=== PATIENT | female | born 1990 | race Caucasian/White ===

== ENCOUNTER 2023-12-22 10:28 | Outpatient (AMB) | payer OTHER, SELFPAY ==
--- NOTE | 2023-12-22 10:29 | A.OFFPC_ITS ---
Vital Signs 12/22/23 10:31 Height 5 ft 4 in Weight 112 lb 6 oz BMI 19.3 BP 110/64 Blood Pressure Location Rt brachial Position Sitting Respiration 13 Pulse 74 Pulse Source Pulse Oximeter Temp 97 F Temp Source Temporal Artery Scan Pulse Oximetry (%) 99 Oxygen Delivery Method Room Air Intake Visit Reasons: PE Woods Overseer Required: No Accompanied by: Self / Same As Patient Allergies No Known Allergies Allergy (Verified 12/22/23 10:43) Medication List - Last Reconciled 12/22/23 by Jared Murphy CNP levonorgestrel (Mirena) intrauterine Tobacco use date assessed: 12/22/23 Dental Screening Dental Screen Date: 12/22/23 Did you have a dental visit in the last 12 months?: Yes Did you have a dental problem in the last 6 months where you did not have access to dental care?: No Was dental information given to patient?: Patient has dentist HPI HPI Comments History of Present Illness Details 33-year-old female presents for an exten ded physical exam She has PMH significant for cleft lip and anemia She notes that she was on iron medications which she stopped taking due to constipation She is on OCP She offers no complaints and denies acute symptoms at this time She states that she is followed by [facility]. Her last pap smear was 09/2023: normal She did not get blood work done last year She notes that she is up-to-date on the flu vaccine [facility] Medical History (Updated 11/28/22 @ 10:13 by Jared Murphy CNP) Cleft palate and cleft lip Anemia Cleft palate Surgical History (Updated 12/22/23 @ 10:38 by URIAH May) H/O tooth extraction Family History (Updated 12/22/23 @ 10:39 by URIAH May) Mother Hypertension Hyperlipemia Diabetes No family history of mental disorder Father Hyperlipemia Hypertension No family history of mental disorder Social History Housing: House Patient Tobacco Use Status: Never used Tobacco e-Cigarette/Vaping Use: Never Used service: No Current occupational status: employed 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 1. Little interest or pleasure in doing things: several days 2. Feeling down, depressed, or hopeless: not at all 3. Trouble falling or staying asleep, or sleeping too much: several days 4. Feeling tired or having little energy: several days 5. Poor appetite or overeating: not at all 6. Feeling bad about yourself - or that you are a failure or have let yourself or your family down: not at all 7. Trouble concentrating on things, such as reading the newspaper or watching television: not at all 8. Moving or speaking so slowly that other people could have noticed. Or the opposite - being so fidgety or restless that you have been moving around a lot more than usual: not at all 9. Thoughts that you would be better off or of hurting yourself in some way: not at all Total score: 3 Depression Screening Interpretation: Negative Depression Screening Done: Yes [id number] - PHQ-9 Billing: Yes Source: Developed by Drs. Frank uTbbs, Erica Alves, Ritesh Goncalves and colleagues, with an educational amy from [employer]. Thrive Questionnaire Date Thrive assessed: 12/22/23 I am a: Patient What is your living situation today?: I have a steady place to live Within the past 12 months, did the food you bought not last and you didn't have the money to get more?: Never true Within the past 12 months, did you worry whether your food would run out before you got money to buy more?: Never true Do you have trouble paying for medicines?: No Do you have trouble getting transportation to medical appointments?: No Do you have trouble paying your heating and electricity bill?: No Do you have trouble taking care of your child, family member or friend?: No Do you have trouble with day-to-day activities such as bathing, preparing meals, shopping, managing finances, etc.?: No Are you currently unemployed and looking for a job?: No Are you interested in more education?: No Please select the resources that you would like help with: None Currently or been in a relationship where the following occur: no concerns reported THRIVE Score: 0 AUDIT C Alcohol Use Questionnaire (AUDIT-C) 1. How often do you have a drink containing alcohol?: Never 3. How often do you have six or more drinks on one occasion?: Never Total Score: 0 BHARGAV-7 AMB Questionnaire BHARGAV-7 Date BHARGAV - 7 assessed: 12/22/23 Feeling nervous, anxious, or on edge: 0 = Not at all Not being able to stop or control worryin = Not at all Worrying too much about different things: 0 = Not at all Trouble relaxin = Several days Being so restless that it is hard to sit still: 0 = Not at all Becoming easily annoyed or irritable: 0 = Not at all Feeling afraid as if something awful might happen: 3 = Nearly every day Total BHARGAV-7 score (0-4 normal; 5-9 mild; 10-14 moderate; 15-21 severe): 4 Source: Developed by Drs. Frank Tubbs, Erica Alves, Ritesh Goncalves and colleagues, with an educational amy from [employer]. BHARGAV-7 Assessment Billing BHARGAV-7 Assessment Tool: BHARGAV-7 Assessment 54513 Review of Systems Const Details: Denies chills, Denies fatigue, Denies fever(s), Denies headache(s) and Denies weakness HEENT Denies change in vision, Denies dizziness, Denies headache(s), Denies hearing loss, Denies nasal congestion, Denies sinus pain, Denies sinus pressure and Denies sore throat Card Denies chest pain, Denies lightheadedness, Denies dyspnea and Denies other (palpitations) Resp Denies cough, Denies dyspnea and Denies wheezing GI Denies abdominal pain, Denies melena, Denies hematochezia, Denies change in bowel habits, Denies dyspepsia and Denies nausea Denies hematuria and Denies dysuria Musc Denies abnormal gait, Denies myalgias, Denies arthralgias, Denies numbness and Denies tingling Skin/Breast Denies rash, Denies unusual bruising and Denies wounds Neuro Denies abnormal gait, Denies dizziness, Denies headache(s), Denies memory loss, Denies numbness, Denies Sensory deficit (Neuro), Denies tingling and Denies weakness Psych Denies anxiety, Denies depression and Denies memory loss Endo Denies cold intolerance, Denies fatigue, Denies heat intolerance, Denies polydipsia and Denies polyuria Issac/Lymph Denies easy bleeding and Denies easy bruising Aller/Immun Denies wheezing Physical exam (Primary Care) Tobacco/Smoking Status: Tobacco use Status Tobacco use date assessed 11/28/22 12/22/23 10:29 Patient Tobacco Use Status Never used Tobacco 12/22/23 10:29 e-Cigarette/Vaping Use Never Used 12/22/23 10:29 Depression Screening Interpretation: Negative Thrive Assessment: Date of Thrive Assessment Date Thrive assessed 11/28/22 12/22/23 10:29 Currently or been in a relationship where the following occur: no concerns reported Const Other: General: no acute distress, well developed, alert and awake Nutritional Appearance: well nourished Orientation/consciousness: patient oriented x3 HENMT Head: Yes normocephalic and Yes atraumatic Ears: hearing grossly normal bilaterally and TM's normal bilaterally General nose exam: Normal external nose present and Normal nares present Mouth: Normal oral and palatal mucosa present and moist mucous membranes Teeth and gingiva: dentition normal Throat: Yes oropharynx normal Eyes Pupils: Equal, round and reactive pupils present and Pupil accommodation reflex normal EOM: EOMs intact bilaterally Neck Neck: Yes normal visual inspection, Yes no lymphadenopathy and Yes trachea midline Thyroid: Thyroid normal Carotids: no bruits Lymphatic: no lymphadenopathy noted Chest Chest palpation & inspection: normal inspection of the chest Resp Effort & Inspection: normal respiratory effort Auscultation: clear to auscultation bilaterally Cardio Rate: regular rate Rhythm: regular rhythm Heart sounds: S1 normal heart sound present, S2 normal heart sound present, no gallops, no murmurs and no rubs Bruits: no abdominal aortic bruits and no carotid bruits GI Palpation (GI): No Abdominal aortic bruit present, Soft to palpation, nontender, No hepatosplenomegaly present and No Rebound tenderness present Auscultation: normal bowel sounds General: Yes no CVA tenderness Back/Spine/Pelvis Back: no CVA tenderness Cervical Spine: cervical ROM normal and No Cervical spine tenderness Thoracic/Lumbar Spine: thoraco-lumbar ROM normal, No pain with thoraco-lumbar ROM, No thoracic spinal tenderness and No lumbar spinal tenderness Skin General: warm and dry. Normal skin color. Normal skin turgor Lesions: no lesions Rashes: no rashes Trauma: no lacerations or abrasions Wounds: no wounds Nails: normal Neuro General: patient oriented x3, gait normal and CN's II-XI intact bilaterally Cranial nerves: Yes Equal, round and reactive pupils present Cognition (Neuro): normal cognition Gait exam (Neuro): Normal gait present Motor exam (neuro): 5/5 motor strength present throughout Sensory Exam: No Sensory deficit (Neuro) Deep tendon reflexes (DTR's): Right patellar reflex intensity grade: 2+ and Left patellar reflex intensity grade: 2+ Extrem General: Yes normal to inspection, No edema and No calf tenderness Psych Appearance: grossly normal Affect: normal affect Attitude: cooperative Thought process: Normal thought process present Assessment and Plan Assessment & Plan (1) Physical exam, annual: Code(s): Z00. - Encounter for general adult medical examination without abnormal findings Plan: No significant physical restrictions or limitations noted Healthy diet and routine exercise encouraged Encouraged to get fasting labs done in follow-up for telehealth visit for labs review Return with symptoms or concerns Verbalized understanding and agreed with the treatment plan (2) Laboratory tests ordered as part of a complete physical exam (CPE): Code(s): Z. - Encounter for general adult medical examination without abnormal findings Plan: Fasting labs ordered as part of a complete physical exam. Advised to fast for at least 10 hours before getting labs drawn. May drink water Verbalized understanding and agreed with treatment plan. Orders: Orders Comprehensive [place]. Panel Fast Today Z00.00 - Encounter for general adult medical examination without abnormal findings Lipid Panel Today Z00.00 - Encounter for general adult medical examination without abnormal findings TSH reflex Free T4 Today Z00.00 - Encounter for general adult medical ex amination without abnormal findings UA CC w/rflx Micro + Cult Today Z00.00 - Encounter for general adult medical examination without abnormal findings Complete Blood Count Auto Diff Today Z00.00 - Encounter for general adult medical examination without abnormal findings Coding Level of Care Code Est Pt Prev Care 18-39y(38427) Diagnoses Physical exam, annual Z00. Laboratory tests ordered as part of a complete physical exam (CPE) Z00. Additional Codes BHARGAV-7 Assessment Billing - BHARGAV-7 Assessment Tool: BHARGAV-7 Assessment [id number] ([id number])
[2023-12-22 10:31] VITALS: BP 110/64; PULSE 74; RESP 13; TEMP 36.1; O2SAT 99; BMI 19.3
== END 2023-12-22 10:55 | disposition home or self-care (01) ==
PROVIDERS: PCP Nurse Practitioner Family; Visit Provider Nurse Practitioner Family
DX: Z00.00 Encounter for general adult medical examination without abnormal findings (principal)
CPT/HCPCS: 99395

== ENCOUNTER 2023-12-28 07:12 | Outpatient (REF) | payer OTHER, SELFPAY ==
[2023-12-28 11:13] LABS: MANUAL DIFF FLAG NO
[2023-12-28 11:26] LABS: Basophils Absolute Auto 0.1 X10*3/uL (0.0-0.2); Basophils Percent Auto 0.9 % (0-2); Eosinophils Absolute Auto 0.2 X10*3/uL (0.0-0.4); Eosinophils Percent Auto 2.4 % (0-4); Hemoglobin 13.5 g/dl (12.0-16.0); Imm Gran Abs Auto 0.02 X10*3/uL (0.00-0.03); Imm Gran Pct Auto 0.3 % (0.0-0.4); Lymphocytes Absolute Auto 2.1 X10*3/uL (1.2-4.9); Mean Corpuscular HGB Conc 32.9 g/dl (31.0-35.0); Mean Corpuscular Hemoglobin 29.8 pg (27.0-33.0); Mean Corpuscular Volume 90.5 fL (80.0-98.0); Mean Platelet Volume 10.8 fL (9.4-12.3); Monocytes Absolute Auto 0.5 X10*3/uL (0.1-1.2); Monocytes Percent Auto 6.9 % (2-11); Neutrophils Absolute Auto 4.6 x10*3/uL (2.0-8.3); Neutrophils Percent Auto 61.5 % (45-73); Platelet Count 239 X10*3/uL (160-400); Red Blood Count 4.53 X10*6/uL (4.20-5.50); White Blood Count 7.4 X10*3/uL (4.8-10.8)
[2023-12-28 11:32] LABS: Appearance Urine Turbid; Color Urine Dark Yellow; Glucose Urine UA Negative (Negative); Leukocyte Esterase Urine Small (1+) (Negative); Nitrite Urine Negative (Negative); Specific Gravity - Urine >= 1.030 (1.005-1.025); UMIC TRIGGER UACC YES; Urine Blood Negative (Negative); Urine Ketones Trace mg/dL (Negative); Urine Protein Negative (Neg-Trace)
[2023-12-28 11:46] LABS: Alanine Aminotransferase 13 U/L (0-31); Albumin Level 4.4 g/dL (3.5-5.0); Alkaline Phosphatase 54 U/L (39-117); Anion Gap 12 (12-20); Aspartate Amino Transferase 18 U/L (5-31); Bilirubin Total 1.6 mg/dL (0.0-1.0); Blood Urea Nitrogen 11 mg/dL (9-16); Calcium 9.6 mg/dL (8.4-10.2); Carbon Dioxide 23 mmol/L (22-29); Chloride 107 mmol/L (96-108); Cholesterol 155 mg/dL (<200); Estimated Glomerular Filt Rate > 60; Glucose Fasting 91 mg/dL (60-99); HDL Cholesterol 58 mg/dL (>40); LDL Cholesterol Calculated 84 mg/dL (<100); Potassium 3.7 mmol/L (3.3-5.1); Sodium 138 mmol/L (135-145); Total Protein 7.9 g/dL (6.5-8.0); Triglycerides 68 mg/dL (<150)
[2023-12-28 11:46] LABS: Bacteria Urine 1+ (None Seen); Hyaline Casts Urine 0-2 /LPF (0-2); RBC Urine 0-2 /HPF (0-2); UACC Culture Trigger YES
[2023-12-28 12:05] LABS: TSH reflex Free T4 1.09 uIU/mL (0.32-4.0)
== END 2023-12-28 07:13 | disposition home or self-care (01) ==
LOC: HO.WFDLDS 07:12
PROVIDERS: Visit Provider Nurse Practitioner Family
DX: Z00.00 Encounter for general adult medical examination without abnormal findings (principal); Z13.6 Encounter for screening for cardiovascular disorders; R82.90 Unspecified abnormal findings in urine
CPT/HCPCS: 36415; 80053; 80061; 81001; 84443; 85025; 87086

== ENCOUNTER 2024-01-11 15:26 | Outpatient (AMB) | payer OTHER, SELFPAY ==
--- NOTE | 2024-01-11 15:24 | MHC.PC.OV ---
Intake Visit Reasons: Telehealth 2-3 wks labs review Honeycomb Blanket Maker Required: No Allergies No Known Allergies Allergy (Verified 01/11/24 15:25) Tobacco use date assessed: 12/22/23 Dental Screening Dental Screen Date: 12/22/23 HPI HPI Comments History of Present Illness Details Patient presents for telehealth visit for review of recent blood work No acute symptoms at this time [facility] Medical History (Updated 01/11/24 @ 15:42 by Jared Murphy CNP) Cleft palate and cleft lip Anemia Cleft palate Surgical History H/O tooth extraction Family History Mother Hypertension Hyperlipemia Diabetes No family history of mental disorder Father Hyperlipemia Hypertension No family history of mental disorder Social History Housing: House Patient Tobacco Use Status: Never used Tobacco e-Cigarette/Vaping Use: Never Used service: No Current occupational status: employed 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 Frank Tubbs, Erica Alves, Ritesh Goncalves and colleagues, with an educational amy from [employer]. Review of Systems Const Details: Const Denies chills, Denies fatigue, Denies fever(s), Denies headache(s) and Denies weakness ENT Denies dizziness and Denies headache(s) Card Denies chest pain, Denies lightheadedness, Denies dyspnea and Denies other (Palpitations) Resp Denies cough, Denies dyspnea, Denies wheezing and Denies other ( shortness of breath) GI Denies abdominal pain, Denies melena, Denies hematochezia, Denies change in bowel habits, Denies dyspepsia and Denies nausea Denies hematuria and Denies dysuria Musc Denies abnormal gait, Denies myalgias, Denies arthralgias, Denies numbness and Denies tingling Skin/Breast Denies rash, Denies unusual bruising and Denies wounds Neuro Denies abnormal gait, Denies dizziness, Denies headache(s), Denies memory loss, Denies numbness, Denies Sensory deficit (Neuro), Denies tingling and Denies weakness Psych Denies anxiety, Denies depression, Denies memory loss Endo Denies cold intolerance, Denies fatigue, Denies heat intolerance, Denies polydipsia and Denies polyuria Aller/Immun Denies wheezing Physical exam (Primary Care) Tobacco/Smoking Status: Tobacco use Status Tobacco use date assessed 12/22/23 01/11/24 15:26 Patient Tobacco Use Status Never used Tobacco 01/11/24 15:26 e-Cigarette/Vaping Use Never Used 01/11/24 15:26 Thrive Assessment: Date of Thrive Assessment Date Thrive assessed 12/22/23 01/11/24 15:26 Const Other: Telehealth visit. No physical exam Telehealth Telehealth Telehealth Platform: Telephone Location of provider rendering services: practice address Location of patient: other Patient Identification confirmed using: Name, : Yes Telehealth method: voice only Patient verbally consented to treatment: Yes Patient verbally consented to billing insurance company: Yes Patient informed of any privacy concerns related to visit: Yes Assessment and Plan Assessment & Plan (1) Elevated bilirubin: Code(s): R17 - Unspecified jaundice Plan: Recent labs reviewed with the patient Unremarkable findings except for slightly elevated bilirubin level, 1.6 CBC and liver enzymes are normal Gilbert syndrome is likely Will repeat bilirubin levels to monitor trend. Will make changes as needed Advised to schedule her next physical for a year from 12/22/2023 Return sooner with symptoms or concerns Verbalized understanding and agreed with the plan Orders: Orders Bilirubin Total Today R17 - Unspecified jaundice Coding Level of Care Code Tele Est Pt Level 2 (63445) Diagnoses Elevated bilirubin R17 Time Spent (min) 10
== END 2024-01-11 17:19 | disposition home or self-care (01) ==
LOC: HO.HMGFM 15:26
PROVIDERS: PCP Nurse Practitioner Family; Visit Provider Nurse Practitioner Family
DX: R17 Unspecified jaundice (principal)
CPT/HCPCS: 99441

== ENCOUNTER 2024-11-30 09:53 | Outpatient (AMB) | payer OTHER, SELFPAY ==
--- NOTE | 2024-11-30 09:57 | A.OFFPC_ITS ---
Vital Signs 11/30/24 10:02 Height 5 ft 4 in Weight 119 lb BMI 20.4 BP 108/62 Blood Pressure Location Rt brachial Position Sitting Respiration 16 Pulse 64 Pulse Source Pulse Oximeter Temp 98.0 F Temp Source Oral Pulse Oximetry (%) 98 Oxygen Delivery Method Room Air Intake Visit Reasons: Ears infections Intake Note: patient here c/o ear pain on right ear for a while now Pick Pulling Machine Tender Required: No Is last menstrual period known: No (she has an IUD) Post menopausal: No Patient : No Allergies No Known Allergies Allergy (Verified 11/30/24 10:15) Medication List - Last Reconciled 11/30/24 by Jared Murphy CNP levonorgestrel (Mirena) intrauterine Tobacco use date assessed: 11/30/24 Dental Screening Dental Screen Date: 11/30/24 Did you have a dental visit in the last 12 months?: Yes Did you have a dental problem in the last 6 months where you did not have access to dental care?: No Was dental information given to patient?: Patient has dentist HPI HPI Comments History of Present Illness Details 34-year-old female presents with complai nts intermittent of right ear pain which has been ongoing for the past 2 weeks. She notes pain with pressure on the right tragus. No loss of hearing. No headache or constitutional symptoms. [facility] Medical History (Updated 11/30/24 @ 10:35 by Jared Murphy CNP) Cleft palate and cleft lip Anemia Cleft palate Surgical History H/O tooth extraction Family History Mother Hypertension Hyperlipemia Diabetes No family history of mental disorder Father Hyperlipemia Hypertension No family history of mental disorder Social History Housing: House Patient Tobacco Use Status: Never used Tobacco e-Cigarette/Vaping Use: Never Used service: No Current occupational status: employed Current occupation: [employer] Cognitive needs: No Hearing needs: No Vision needs: No Questionnaire PHQ-9 Over the last 2 weeks, how often have you been bothered by any of the following problems? 1. Little interest or pleasure in doing things: not at all 2. Feeling down, depressed, or hopeless: not at all 3. Trouble falling or staying asleep, or sleeping too much: not at all 4. Feeling tired or having little energy: not at all 5. Poor appetite or overeating: not at all 6. Feeling bad about yourself - or that you are a failure or have let yourself or your family down: not at all 7. Trouble concentrating on things, such as reading the newspaper or watching television: not at all 8. Moving or speaking so slowly that other people could have noticed. Or the opposite - being so fidgety or restless that you have been moving around a lot more than usual: not at all 9. Thoughts that you would be better off or of hurting yourself in some way: not at all Total score: 0 Source: Developed by Drs. Frank Tubbs, Erica Alves, Ritesh Goncalves and colleagues, with an educational amy from [employer]. Thrive Questionnaire Date Thrive assessed: 11/30/24 I am a: Patient What is your living situation today?: I have a steady place to live Within the past 12 months, did the food you bought not last and you didn't have the money to get more?: Never true Within the past 12 months, did you worry whether your food would run out before you got money to buy more?: Never true Do you have trouble paying for medicines?: No Do you have trouble getting transportation to medical appointments?: No Do you have trouble paying your heating and electricity bill?: No Do you have trouble taking care of your child, family member or friend?: No Do you have trouble with day-to-day activities such as bathing, preparing meals, shopping, managing finances, etc.?: No Are you currently unemployed and looking for a job?: No Are you interested in more education?: No Please select the resources that you would like help with: None Currently or been in a relationship where the following occur: No concerns reported THRIVE Score: 0 AUDIT C Alcohol Use Questionnaire (AUDIT-C) 1. How often do you have a drink containing alcohol?: Never 2. How many drinks containing alcohol do you have on a typical day when you are drinking?: 1 or 2 3. How often do you have six or more drinks on one occasion?: Never Total Score: 0 BHARGAV-7 AMB Questionnaire BHARGAV-7 Date BHARGAV - 7 assessed: 12/22/23 Feeling nervous, anxious, or on edge: 0 = Not at all Not being able to stop or control worryin = Not at all Worrying too much about different things: 0 = Not at all Trouble relaxin = Not at all Being so restless that it is hard to sit still: 0 = Not at all Becoming easily annoyed or irritable: 0 = Not at all Feeling afraid as if something awful might happen: 0 = Not at all Total BHARGAV-7 score (0-4 normal; 5-9 mild; 10-14 moderate; 15-21 severe): 0 Source: Developed by Drs. Frank Tubbs, Erica Alves, Ritesh Goncalves and colleagues, with an educational amy from [employer]. Review of Systems Const Details: Const Denies chills, Denies fatigue, Denies fever(s), Denies headache(s) and Denies weakness ENT Reports as per HPI Card Denies chest pain, Denies lightheadedness, Denies dyspnea and Denies other (Palpitations) Resp Denies cough, Denies dyspnea, Denies wheezing and Denies other ( shortness of breath) GI Denies abdominal pain, Denies melena, Denies hematochezia, Denies change in bowel habits, Denies dyspepsia and Denies nausea Denies hematuria and Denies dysuria Musc Denies abnormal gait, Denies myalgias, Denies arthralgias, Denies numbness and Denies tingling Skin/Breast Denies rash, Denies unusual bruising and Denies wounds Neuro Denies abnormal gait, Denies dizziness, Denies headache(s), Denies memory loss, Denies numbness, Denies Sensory deficit (Neuro), Denies tingling and Denies weakness Psych Denies anxiety, Denies depression, Denies memory loss Endo Denies cold intolerance, Denies fatigue, Denies heat intolerance, Denies polydipsia and Denies polyuria Aller/Immun Denies wheezing Physical exam (Primary Care) Vital Signs: Last Vital Signs Temp 98.0 F 11/30/24 10:02 Pulse 64 11/30/24 10:02 Resp 16 11/30/24 10:02 BP 108/62 03/19/25 10:02 Pulse Ox 98 11/30/24 10:02 Oxygen Delivery Method Room Air 11/30/24 10:02 BMI result Body Mass Index 20.4 Tobacco/Smoking Status: Tobacco use Status Tobacco use date assessed 11/30/24 11/30/24 10:02 Patient Tobacco Use Status Never used Tobacco 11/30/24 10:02 e-Cigarette/Vaping Use Never Used 11/30/24 10:02 PHQ-9: PHQ-9 Score PHQ-9: Total score 0 11/30/24 10:02 Thrive Assessment: Date of Thrive Assessment Date Thrive assessed 11/30/24 11/30/24 10:02 Currently or been in a relationship where the following occur: No concerns reported Const Other: General: no acute distress and well developed Nutritional Appearance: well nourished Orientation/consciousness: patient oriented x3 HENMT Head is normocephalic Right ear with significant cerumen impaction occluding the ear canal and TM; tenderness with palpation of the right tragus. Normal left ear canal and TM Nasal turbinates and oropharynx are pink and moist Sinuses are nontender with palpation No auricular or cervical lymphadenopathy Eyes General: appearance normal, both eyes and all related structures Pupils: Equal, round and reactive pupils present EOM: EOMs intact bilaterally Resp Effort & Inspection: normal respiratory effort Auscultation: clear to auscultation bilaterally Cardio Rate: regular rate Rhythm: regular rhythm Heart sounds: S1 normal heart sound present, S2 normal heart sound present, no gallops, no murmurs and no rubs GI Palpation (GI): No Abdominal aortic bruit present, Soft to palpation, nontender, No hepatosplenomegaly present and No Rebound tenderness present Auscultation: normal bowel sounds General: Yes no CVA tenderness Back/Spine/Pelvis Back: no CVA tenderness Cervical Spine: cervical ROM normal and No Cervical spine tenderness Thoracic/Lumbar Spine: thoraco-lumbar ROM normal, No pain with thoraco-lumbar ROM, No thoracic spinal tenderness and No lumbar spinal tenderness Extrem General: Yes normal to inspection, No edema and No calf tenderness Skin General: warm and dry. Normal skin color. Normal skin turgor Lesions: no lesions Rashes: no rashes Trauma: no lacerations or abrasions Wounds: no wounds Nails: normal Neuro General: patient oriented x3, gait normal and no focal neuro deficit Cranial nerves: Yes Equal, round and reactive pupils present Cognition (Neuro): normal cognition Gait exam (Neuro): Normal gait present Sensory Exam: No Sensory deficit (Neuro) Psych Appearance: grossly normal Affect: normal affect Attitude: cooperative Thought process: Normal thought process present Coding Level of Care Code Est Pt Level 3 (00554) Diagnoses Impacted cerumen, right ear H61.21 Laboratory tests ordered as part of a complete physical exam (CPE) Z00.00 Assessment & Plan Assessment & Plan (1) Impacted cerumen, right ear: Code(s): H61.21 - Impacted cerumen, right ear Category: Medical Plan: Patient presents with intermittent right ear pain and pain with palpation of the right tragus for the past 2 weeks. Right ear with significant cerumen impaction occluding the ear canal and TM; tenderness with palpation of the right tragus. May take Tylenol or ibuprofen for pain or discomfort. Debrox ordered; advised to use as prescribed. Follow-up after the 4th day of using Debrox for right ear lavage. Verbalized understanding and agreed with the plan. (2) Laboratory tests ordered as part of a complete physical exam (CPE): Code(s): Z00.00 - Encounter for general adult medical examination without abnormal findings Category: Medical Plan: Fasting labs ordered as part of a complete physical exam. Advised to fast for at least 10 hours before getting labs drawn. May drink water Verbalized understanding and agreed with treatment plan. Orders: Orders Complete Blood Count Auto Diff Today Z00.00 - Encounter for general adult medical examination without abnormal findings Comprehensive [place]. Panel Fast Today Z00.00 - Encounter for general adult medical examination without abnormal findings Lipid Panel Today Z00.00 - Encounter for general adult medical examination without abnormal findings TSH reflex Free T4 Today Z00.00 - Encounter for general adult medical examination without abnormal findings UA CC w/rflx Micro + Cult Today Z00.00 - Encounter for general adult medical examination without abnormal findings Vitamin D 25-OH Total Today Z00.00 - Encounter for general adult medical examination without abnormal findings Medications: New carbamide peroxide 6.5% (Debrox) 5 drps otic (ear) right DAILY 4 days 15 mL 0RF
[2024-11-30 10:02] VITALS: BP 108/62; PULSE 64; RESP 16; TEMP 36.7; O2SAT 98; BMI 20.4
--- OUTSIDE RECORDS SUMMARY | 2024-11-30 11:17 | XMS_ITS | Clinical Summary ---
Author Organization [address] Address [address] [place] [address] Phone Care Team Providers Care Hotel Assistant Manager Name Role Phone Physician, Pcp Unknown Primary Care Provider Mary vailable Encounters Date Type Department Care Team Description 11/04/2024 Lab Requisition [facility] - Main Lab [address] [facility] [place] [address] Kwame Mercer MD Encounter for gynecological examination (general) (routine) without abnormal findings from Last 3 Months Social History Tobacco Use Types Packs/Day Years Used Date Smoking Tobacco: Never Assessed Comments Unknown Sex and Gender Information Value Date Recorded Sex Assigned at Not on file Legal Sex Female 9:07 AM EST Gender Identity Not on file Sexual Orientation Not on file Plan of Treatment Health Maintenance Due Date Last Done Comments Hepatitis B Vaccines (1 of 3 - 19+ 3-dose series) 2008 DTaP,Tdap,and Td Vaccines (2 - Td or Tdap) 04/04/2023 04/04/2013 COVID-19 Vaccine ( - 2023-2 5 season) 2024 Influenza Vaccine (#1) 2024 07/03/2016 Depression Screening 11/04/2024 HIV Screening 11/04/2024 Hepatitis C Screening 11/04/2024 Social Influencers of Health Screening 11/04/2024 Cervical Cancer Screening: P ap Smear 11/03/2027 11/03/2024 HIB Vaccines Aged Out No longer eligi ble based on patient's age to complete this topic HPV Vaccines Aged Out No longer eligi ble based on patient's age to complete this topic Hepatitis A Vaccines Aged Out No long er eligible based on patient's age to complete this topic IPV Vaccines Aged Out No longer eligi ble based on patient's age to complete this topic MMR Vaccines Aged Out No longer eligi ble based on patient's age to complete this topic Meningococcal ACWY Vaccine Aged Out N o longer eligible based on patient's age to complete this topic Meningococcal B Vacine Aged Out No lo nger eligible based on patient's age to complete this topic Pneumococcal Vaccine: Pediat rics (0 to 5 Years) and At-Risk Patients (6 to 64 Years) Aged Out No longer eligi ble based on patient's age to complete this topic RSV Immunization Patients Un manuel 20 months Aged Out No longer eligible b ased on patient's age to complete this topic Varicella Vaccines Aged Out No longer eligible based on patient's age to complete this topic Procedures Procedure Name Priority Date/Time Associated Diagnosis Comments CHLAMYDIA TRACHOMATIS AND NEISSERIA GONORRHOEAE BY TMA, THINPREP Routine 11/03/2024 12:00 AM EST Encounter for gynecological examination (general) (routine) without abnormal findings PAP SMEAR Routine 11/03/2024 12:00 AM EST Encounter for gynecological examination (general) (routine) without abnormal findings from Last 3 Months Results * Chlamydia trachomatis and neisseria gonorrhoeae by tma, thinprep (11/03/2024 12:00 AM EST) N. gonorrhoeae, RNA Probe Negative Negative LAB MICROBIOLOGY METHOD 11/04/2024 1:[address] [facility] Chlamydia, RNA Probe Negative Negative LAB MICROBIOLOGY METHOD 11/04/2024 1:[address] [facility] Brushing/Spatula Cervix uteri structure / Unknown 11/03/2024 11/04/2024 8:27 AM EST Kwame Mercer MD LAB CYTOLOGY ORDERABLES Final Result [facility] [address] [place] [address], * Pap smear (11/03/2024 12:00 AM EST) Interpretation Negative for intraepithelial lesion or malignancy 11/07/2024 3:[address] [facility] General Categorization Negative 11/07/2024 3:[address] [facility] Other Findings Reactive cellular changes associated with inflammation 11/07/2024 3:[address] [facility] Additional Information History of LSIL 11/07/2024 3:50 PM [facility] Specimen Adequacy Satisfactory for evaluation, endocervical/knutson sformation zone component present 11/07/2024 3:50 PM [facility] Pap Methodology Liquid Based Pap Test 11/07/2024 3:50 PM [facility] Disclaimer The Pap test is a screening test which carries an inherent false negative rate. These test results should be correlated with the patient's clinical findings and history. This Pap test was processed using an automated screening system. Technical cytopathology services provided by [facility], at [address] [place] [address] (CLIA # [id number]/Josefina Seo MD, Publisher Assistant.) 11/07/2024 3:50 PM [facility] Console Pap Interpretation Reported 11/07/2024 3:50 PM [facility] Brushing/Spatula Cervix uteri structure / Unknown 11/03/2024 11/04/2024 8:27 AM EST us Kwame Mercer MD LAB CYTOLOGY ORDERABLES Final Result [facility] [address] [place] [address], from Last [address] [place] [address] [employer] Care Teams Hotel Assistant Manager Relationship Specialty Start Date End Date Physician, Pcp Unknown PCP - General 11/04/24
--- OUTSIDE RECORDS SUMMARY | 2024-11-30 11:17 | XMS_ITS | Encounter Summary ---
Author Organization [facility] Address [id number] [place] [id number] Care Team Providers Care Slasher Name Role Phone Physician, Pcp Unknown Primary Care Provider Mary vailable Encounter Details Date Type Department Care Team (Latest Contact Info) Description 11/04/2024 Lab Requisition [facility] - Main Lab [address] [facility] [address] Kwame Mercer MD [address] [facility] [address] [place] [address] Encounter for gynecological examination (general) (routine) without abnormal findings Social History Tobacco Use Types Packs/Day Years Used Date Smoking Tobacco: Never Assessed Comments Unknown Sex and Gender Information Value Date Recorded Sex Assigned at Not on file Legal Sex Female 9:07 AM EST Gender Identity Not on file Sexual Orientation Not on file documented as of this encounter Plan of Treatment Not on file documented as of this encounter Procedures Procedure Name Priority Date/Time Associated Diagnosis Comments CHLAMYDIA TRACHOMATIS AND NEISSERIA GONORRHOEAE BY TMA, THINPREP Routine 11/03/2024 12:00 AM EST Encounter for gynecological examination (general) (routine) without abnormal findings PAP SMEAR Routine 11/03/2024 12:00 AM EST Encounter for gynecological examination (general) (routine) without abnormal findings documented in this encounter Results * Chlamydia trachomatis and neisseria gonorrhoeae by tma, thinprep (11/03/2024 12:00 AM EST) N. gonorrhoeae, RNA Probe Negative Negative LAB MICROBIOLOGY METHOD 11/04/2024 1:22 PM EST [facility] Chlamydia, RNA Probe Negative Negative LAB MICROBIOLOGY METHOD 11/04/2024 1:22 PM EST [facility] Brushing/Spatula Cervix uteri structure / Unknown 11/03/2024 11/04/2024 8:27 AM EST Kwame Mercer MD LAB CYTOLOGY ORDERABLES Final Result [facility] [address] [place] [address], * Pap smear (11/03/2024 12:00 AM EST) Interpretation Negative for intraepithelial lesion or malignancy 11/07/2024 3:50 PM [facility] General Categorization Negative 11/07/2024 3:50 PM [facility] Other Findings Reactive cellular changes associated with inflammation 11/07/2024 3:50 PM [facility] Additional Information History of LSIL 11/07/2024 3:50 PM [facility] Specimen Adequacy Satisfactory for evaluation, endocervical/knutson sformation zone component present 11/07/2024 3:50 PM [facility] Pap Methodology Liquid Based Pap Test 11/07/2024 3:50 PM [facility] Disclaimer The Pap test is a screening test which carries an inherent false negative rate. These test results should be correlated with the patient's clinical findings and history. This Pap test was processed using an automated screening system. Technical cytopathology services provided by [facility], at [address] [place] [id number] (CLIA # [id number]/Josefina Seo MD, Coal Screener.) 11/07/2024 3:50 PM [facility] Console Pap Interpretation Reported 11/07/2024 3:50 PM [facility] Brushing/Spatula Cervix uteri structure / Unknown 11/03/2024 11/04/2024 8:27 AM EST us Kwame Mercer MD LAB CYTOLOGY ORDERABLES Final Result [facility] [address] [place] [address], documented in this encounter Visit Diagnoses Diagnosis Encounter for gynecological examination (general) (routine) without abnormal findings documented in this encounter Care Teams Slasher Relationship Specialty Start Date End Date Physician, Pcp Unknown PCP - General 11/04/24 documented as of this encounter
== END 2024-11-30 10:30 | disposition home or self-care (01) ==
LOC: HO.HMCFM 09:54
PROVIDERS: PCP Nurse Practitioner Family; Visit Provider Nurse Practitioner Family
DX: H61.21 Impacted cerumen, right ear (principal); Z00.00 Encounter for general adult medical examination without abnormal findings

== ENCOUNTER → 2024-11-30 09:53 | Outpatient (BNVA) | payer OTHER, SELFPAY | PROVIDERS: PCP Nurse Practitioner Family; Visit Provider Nurse Practitioner Family ==

== ENCOUNTER 2024-12-08 09:00 | Outpatient (AMB) | payer OTHER, SELFPAY ==
--- NOTE | 2024-12-08 09:03 | MHC.PC.OV ---
Vital Signs 12/08/24 09:07 Height 5 ft 4 in Weight 116 lb BMI 19.9 BP 107/53 L Blood Pressure Location Rt brachial Position Sitting Respiration 16 Pulse 62 Pulse Source Pulse Oximeter Temp 98.0 F Temp Source Oral Pulse Oximetry (%) 100 Oxygen Delivery Method Room Air Intake Visit Reasons: Right ear lavage Intake Note: patient here for ear lavage Fur Dresser Required: No Is last menstrual period known: No Post menopausal: No Patient : No Allergies No Known Allergies Allergy (Verified 12/08/24 09:24) Medication List - Last Reconciled 12/08/24 by Jared Murphy CNP carbamide peroxide 6.5% (Debrox) 5 drps otic (ear) right DAILY 4 days levonorgestrel (Mirena) intrauterine Tobacco use date assessed: 12/08/24 Dental Screening Dental Screen Date: 12/08/24 Did you have a dental visit in the last 12 months?: Yes Did you have a dental problem in the last 6 months where you did not have access to dental care?: No Was dental information given to patient?: Patient has dentist HPI HPI Comments History of Present Illness Details 34-year-old female presents for right ear lavage. She continues to experience right ear pain. She has significant amount of cerumen in the right ear. She notes that she apply Debrox as prescribed. 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 Cognitive needs: No Hearing needs: No Vision needs: No Questionnaire Thrive Questionnaire Date Thrive assessed: 11/30/24 I am a: Patient What is your living situation today?: I have a steady place to live Within the past 12 months, did the food you bought not last and you didn't have the money to get more?: Never true Within the past 12 months, did you worry whether your food would run out before you got money to buy more?: Never true Do you have trouble paying for medicines?: No Do you have trouble getting transportation to medical appointments?: No Do you have trouble paying your heating and electricity bill?: No Do you have trouble taking care of your child, family member or friend?: No Do you have trouble with day-to-day activities such as bathing, preparing meals, shopping, managing finances, etc.?: No Are you currently unemployed and looking for a job?: No Are you interested in more education?: No Please select the resources that you would like help with: None Currently or been in a relationship where the following occur: No concerns reported THRIVE Score: 0 BHARGAV-7 AMB Questionnaire BHARGAV-7 Date BHARGAV - 7 assessed: 12/22/23 Source: Developed by Drs. Frank Tubbs, Erica Alves, Ritesh Goncalves and colleagues, with an educational amy from [employer]. Review of Systems Const Details: Const Denies chills, Denies fatigue, Denies fever(s), Denies headache(s) and Denies weakness ENT Reports as per HPI Card Denies chest pain, Denies lightheadedness, Denies dyspnea and Denies other (Palpitations) Resp Denies cough, Denies dyspnea, Denies wheezing and Denies other ( shortness of breath) GI Denies abdominal pain, Denies melena, Denies hematochezia, Denies change in bowel habits, Denies dyspepsia and Denies nausea Denies hematuria and Denies dysuria Musc Denies abnormal gait, Denies myalgias, Denies arthralgias, Denies numbness and Denies tingling Skin/Breast Denies rash, Denies unusual bruising and Denies wounds Neuro Denies abnormal gait, Denies dizziness, Denies headache(s), Denies memory loss, Denies numbness, Denies Sensory deficit (Neuro), Denies tingling and Denies weakness Psych Denies anxiety, Denies depression, Denies memory loss Endo Denies cold intolerance, Denies fatigue, Denies heat intolerance, Denies polydipsia and Denies polyuria Aller/Immun Denies wheezing Physical exam (Primary Care) Vital Signs: Last Vital Signs Temp 98.0 F 12/08/24 09:07 Pulse 62 12/08/24 09:07 Resp 16 12/08/24 09:07 BP 107/53 L 12/08/24 09:07 Pulse Ox 100 12/08/24 09:07 Oxygen Delivery Method Room Air 12/08/24 09:07 BMI result Body Mass Index 19.9 Tobacco/Smoking Status: Tobacco use Status Tobacco use date assessed 12/08/24 12/08/24 09:10 Patient Tobacco Use Status Never used Tobacco 12/08/24 09:04 e-Cigarette/Vaping Use Never Used 12/08/24 09:04 Thrive Assessment: Date of Thrive Assessment Date Thrive assessed 11/30/24 12/08/24 09:04 Currently or been in a relationship where the following occur: No concerns reported Const Other: General: no acute distress and well developed Nutritional Appearance: well nourished Orientation/consciousness: patient oriented x3 HENMT Head is normocephalic Right ear with significant cerumen impaction occluding the ear canal and TM; tenderness with palpation of the right tragus Left ear canal and TM are normal Nasal turbinates and oropharynx are pink and moist Sinuses are nontender with palpation No auricular or cervical lymphadenopathy Eyes General: appearance normal, both eyes and all related structures Pupils: Equal, round and reactive pupils present EOM: EOMs intact bilaterally Resp Effort & Inspection: normal respiratory effort Auscultation: clear to auscultation bilaterally Cardio Rate: regular rate Rhythm: regular rhythm Heart sounds: S1 normal heart sound present, S2 normal heart sound present, no gallops, no murmurs and no rubs GI Palpation (GI): No Abdominal aortic bruit present, Soft to palpation, nontender, No hepatosplenomegaly present and No Rebound tenderness present Auscultation: normal bowel sounds General: Yes no CVA tenderness Back/Spine/Pelvis Back: no CVA tenderness Cervical Spine: cervical ROM normal and No Cervical spine tenderness Thoracic/Lumbar Spine: thoraco-lumbar ROM normal, No pain with thoraco-lumbar ROM, No thoracic spinal tenderness and No lumbar spinal tenderness Extrem General: Yes normal to inspection, No edema and No calf tenderness Skin General: warm and dry. Normal skin color. Normal skin turgor Neuro General: patient oriented x3, gait normal and no focal neuro deficit Cranial nerves: Yes Equal, round and reactive pupils present Cognition (Neuro): normal cognition Gait exam (Neuro): Normal gait present Sensory Exam: No Sensory deficit (Neuro) Psych Appearance: grossly normal Affect: normal affect Attitude: cooperative Thought process: Normal thought process present Coding Level of Care Code Est Pt Level 4 (02144) Diagnoses Impacted cerumen, right ear H61.21 Otitis media of right ear H66.91 Assessment & Plan Assessment & Plan (1) Impacted cerumen, right ear: Code(s): H61.21 - Impacted cerumen, right ear Category: Medical Plan: Right ear with significant cerumen impaction occluding the ear canal and TM; tenderness with palpation of the right tragus. Significant amount of cerumen removed from the right ear with irrigation. Right TM with erythema/irritation following cerumen removal; no bulging or exudates. Amoxicillin 875 mg every 12 hours ordered; advised to take as prescribed and with food. Instructed on the risks, benefits, and potential adverse reactions of the medication. May take Tylenol ibuprofen for pain or discomfort. Follow-up with worsening or new symptoms. Verbalized understanding and agreed with treatment plan. (2) Otitis media of right ear: Code(s): H66.91 - Otitis media, unspecified, right ear Category: Medical Plan: Plan as above. Medications: New amoxicillin 875 mg PO Q12H 7 days 14 tabs 0RF
[2024-12-08 09:07] VITALS: BP 107/53; PULSE 62; RESP 16; TEMP 36.7; O2SAT 100; BMI 19.9
--- OUTSIDE RECORDS SUMMARY | 2024-12-08 10:12 | XMS_ITS | Clinical Summary ---
Author Organization [address] Address [address] [place] [address] Phone Care Team Providers Care Peoplesoft Developer Name Role Phone Physician, Pcp Unknown Primary Care Provider Mary vailable Encounters Date Type Department Care Team Description 11/04/2024 Lab Requisition [facility] - Main Lab [address] [facility] [place] [address] Kwame Mercer MD Encounter for [...] LAB MICROBIOLOGY METHOD 11/04/2024 1:22 PM EST [facility] Chlamydia, RNA Probe Negative Negative LAB MICROBIOLOGY METHOD 11/04/2024 1:22 PM EST [facility] Brushing/Spatula Cervix uteri structure / Unknown 11/03/2024 11/04/2024 8:27 AM EST Kwame Mercer MD LAB CYTOLOGY ORDERABLES Final Result [facility] [address] [place] [address], * Pap smear (11/03/2024 12:00 AM EST) Interpretation Negative for intraepithelial lesion or malignancy 11/07/2024 3:50 PM EST [facility] General Categorization Negative 11/07/2024 3:50 PM EST [facility] Other Findings Reactive cellular changes associated with inflammation 11/07/2024 3:50 PM EST [facility] Additional Information History of LSIL 11/07/2024 3:50 PM [facility] Specimen Adequacy Satisfactory for evaluation, endocervical/knutson sformation zone component present 11/07/2024 3:50 PM [facility] Pap Methodology Liquid Based Pap Test 11/07/2024 3:50 PM [facility] Disclaimer The Pap test is a screening test which carries an inherent false negative rate. These test results should be correlated with the patient's clinical findings and history. This Pap test was processed using an automated screening system. Technical cytopathology services provided by [facility], at [address] [place] [address] (CLIA # [id number]/Josefina Seo MD, Clock Repairer.) 11/07/2024 3:50 PM [facility] Console Pap Interpretation Reported 11/07/2024 3:50 PM [facility] Brushing/Spatula Cervix uteri structure / Unknown 11/03/2024 11/04/2024 8:27 AM EST us Kwame Mercer MD LAB CYTOLOGY ORDERABLES Final Result [facility] [address] [place] [address], from [place] [address] [place] [address] [employer] Care Teams Peoplesoft Developer Relationship Specialty Start Date End Date Physician, Pcp Unknown PCP - General 11/04/24
--- OUTSIDE RECORDS SUMMARY | 2024-12-08 10:12 | XMS_ITS | Encounter Summary ---
Author Organization [facility] Address [id number] [place] [id number] Care Team Providers Care Conductor Sleeping Car Name Role Phone Physician, Pcp Unknown Primary Care Provider Mary vailable Encounter Details Date Type Department Care Team (Latest Contact Info) Description 11/04/2024 Lab Requisition [facility] - Main Lab [address] [facility] [place] [address] Kwame Mercer MD [address] [facility] [address] [place] [address] Encounter for gynecological examination (general) [...] LAB MICROBIOLOGY METHOD 11/04/2024 1:22 PM EST [facility] Chlamydia, RNA Probe Negative Negative LAB MICROBIOLOGY METHOD 11/04/2024 1:22 PM EST [facility] Brushing/Spatula Cervix uteri structure / Unknown 11/03/2024 11/04/2024 8:27 AM EST Kwame Mercer MD LAB CYTOLOGY ORDERABLES Final Result [facility] [address] [place] [address], * Pap smear (11/03/2024 12:00 AM EST) Interpretation Negative for intraepithelial lesion or malignancy 11/07/2024 3:[address] [facility] General Categorization Negative 11/07/2024 3:[address] [facility] Other Findings Reactive cellular changes associated with inflammation 11/07/2024 3:[address] [facility] Additional Information History of LSIL 11/07/2024 3:[address] [facility] Specimen Adequacy Satisfactory for evaluation, endocervical/knutson sformation zone component present 11/07/2024 3:[address] [facility] Pap Methodology Liquid Based Pap Test 11/07/2024 3:[address] [facility] Disclaimer The Pap test is a screening test which carries an inherent false negative rate. These test results should be correlated with the patient's clinical findings and history. This Pap test was processed using an automated screening system. Technical cytopathology services provided by [facility], at [address] [place] [id number] (CLIA # [id number]/Josefina Seo MD, Director Product Development.) 11/07/2024 3:[address] [facility] Console Pap Interpretation Reported 11/07/2024 3:[address] [facility] Brushing/Spatula Cervix uteri structure / Unknown 11/03/2024 11/04/2024 8:27 AM EST us Kwame Mercer MD LAB CYTOLOGY ORDERABLES Final Result [facility] [address] [place] [address], documented in this encounter Visit Diagnoses Diagnosis Encounter for gynecological examination (general) (routine) without abnormal findings documented in this encounter Care Teams Conductor Sleeping Car Relationship Specialty Start Date End Date Physician, Pcp Unknown PCP - General 11/04/24 documented as of this encounter
== END 2024-12-08 09:31 | disposition home or self-care (01) ==
LOC: HO.HMCFM 09:01
PROVIDERS: PCP Nurse Practitioner Family; Visit Provider Nurse Practitioner Family
DX: H61.21 Impacted cerumen, right ear (principal); H66.91 Otitis media, unspecified, right ear

== ENCOUNTER 2024-12-08 09:49 | Outpatient (REF) | payer OTHER, SELFPAY ==
[2024-12-08 11:02] LABS: MANUAL DIFF FLAG NO
[2024-12-08 11:16] LABS: Basophils Absolute Auto 0.1 X10*3/uL (0.0-0.2); Eosinophils Absolute Auto 0.2 X10*3/uL (0.0-0.4); Eosinophils Percent Auto 3.3 % (0-4); Hematocrit 38.6 % (37.0-47.0); Hemoglobin 12.8 g/dl (12.0-16.0); Imm Gran Abs Auto 0.03 X10*3/uL (0.00-0.03); Imm Gran Pct Auto 0.4 % (0.0-0.4); Lymphocytes Absolute Auto 1.7 X10*3/uL (1.2-4.9); Lymphocytes Percent Auto 24.8 % (20-40); Mean Corpuscular HGB Conc 33.2 g/dl (31.0-35.0); Mean Corpuscular Hemoglobin 29.9 pg (27.0-33.0); Mean Corpuscular Volume 90.2 fL (80.0-98.0); Mean Platelet Volume 10.8 fL (9.4-12.3); Monocytes Absolute Auto 0.5 X10*3/uL (0.1-1.2); Monocytes Percent Auto 7.1 % (2-11); Neutrophils Absolute Auto 4.4 x10*3/uL (2.0-8.3); Neutrophils Percent Auto 63.4 % (45-73); Platelet Count 218 X10*3/uL (160-400); Red Blood Count 4.28 X10*6/uL (4.20-5.50); Red Cell Distribution Width 12.9 % (11.0-16.0); White Blood Count 6.9 X10*3/uL (4.8-10.8)
[2024-12-08 11:20] LABS: Appearance Urine Clear; Color Urine Yellow; Glucose Urine UA Negative (Negative); Leukocyte Esterase Urine Negative (Negative); Nitrite Urine Negative (Negative); Specific Gravity - Urine 1.025 (1.005-1.025); Urine Blood Negative (Negative); Urine Ketones Trace mg/dL (Negative); Urine Protein Negative (Neg-Trace)
[2024-12-08 11:56] LABS: Alanine Aminotransferase 12 U/L (0-31); Albumin Level 4.3 g/dL (3.5-5.0); Alkaline Phosphatase 62 U/L (39-117); Anion Gap 9 (12-20); Aspartate Amino Transferase 20 U/L (5-31); Bilirubin Total 1.9 mg/dL (0.0-1.0); Blood Urea Nitrogen 7 mg/dL (9-16); Calcium 9.5 mg/dL (8.4-10.2); Carbon Dioxide 27 mmol/L (22-29); Chloride 109 mmol/L (96-108); Cholesterol 145 mg/dL (<200); Estimated Glomerular Filt Rate > 60; Glucose Fasting 89 mg/dL (60-99); HDL Cholesterol 56 mg/dL (>40); LDL Cholesterol Calculated 79 mg/dL (<100); Potassium 3.8 mmol/L (3.3-5.1); Sodium 141 mmol/L (135-145); TSH reflex Free T4 1.08 uIU/mL (0.32-4.0); Total Protein 7.5 g/dL (6.5-8.0); Triglycerides 54 mg/dL (<150); Vitamin D 25-OH Total 18.6 ng/mL (>30)
== END 2024-12-08 09:50 | disposition home or self-care (01) ==
LOC: HO.WFDLDS 09:49
PROVIDERS: Visit Provider Nurse Practitioner Family
DX: Z00.00 Encounter for general adult medical examination without abnormal findings (principal); Z13.6 Encounter for screening for cardiovascular disorders
CPT/HCPCS: 36415; 80053; 80061; 81003; 82306; 84443; 85025

== ENCOUNTER 2024-12-26 10:00 | Outpatient (AMB) | payer OTHER, SELFPAY ==
--- NOTE | 2024-12-26 10:07 | A.OFFPC_ITS ---
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 Required: No Is last menstrual period known: Yes Last menstrual period: 12/23/24 Post menopausal: No Patient : No Allergies No Known Allergies Allergy (Verified 12/26/24 10:27) Medication List - Last Reconciled 12/26/24 by Jared Murphy CNP cholecalciferol (vitamin D3) 1,250 mcg PO QWEEK 4 weeks levonorgestrel (Mirena) intrauterine Tobacco use date assessed: 12/26/24 Dental Screening Dental Screen Date: 12/26/24 Did you have a dental visit in the last 12 months?: Yes Did you have a dental problem in the last 6 months where you did not have access to dental care?: No Was dental information given to patient?: Patient has dentist HPI HPI Comments History of Present Illness Details 34-year-old female presents for an exten ded physical exam. Acute issue(s) - None Past Medical History - Cleft lip and anemia Social History - Nonsmoker. Does not vape. Does not dr ink alcohol. Denies recreational drug use - Has been making healthy dietary choice s. Active but does not exercise. Generally sleep well Health maintenance - Last eye exam was several years ago. S he does not have vision coverage and will look for an eye doctor for [id number] - Last dental visit was in 07/2024. - Last tetanus vaccine was in 04/2016 - Has not been vaccinated for the flu season; declines vaccination - Last pap smear test was with [facility] in 10/2024: normal. 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 1. Little interest or pleasure in doing things: not at all 2. Feeling down, depressed, or hopeless: not at all 3. Trouble falling or staying asleep, or sleeping too much: not at all 4. Feeling tired or having little energy: several days 5. Poor appetite or overeating: not at all 6. Feeling bad about yourself - or that you are a failure or have let yourself or your family down: not at all 7. Trouble concentrating on things, such as reading the newspaper or watching television: not at all 8. Moving or speaking so slowly that other people could have noticed. Or the opposite - being so fidgety or restless that you have been moving around a lot more than usual: not at all 9. Thoughts that you would be better off or of hurting yourself in some way: not at all Total score: 1 Depression Screening Interpretation: Negative Depression Screening Done: Yes 20948 - PHQ-9 Billing: Yes Source: Developed by Drs. Frank Tubbs, Erica Alves, Ritesh Goncalves and colleagues, with an educational amy from [employer]. Thrive Questionnaire Date Thrive assessed: 12/26/24 I am a: Patient What is your living situation today?: I have a steady place to live Within the past 12 months, did the food you bought not last and you didn't have the money to get more?: Never true Within the past 12 months, did you worry whether your food would run out before you got money to buy more?: Never true Do you have trouble paying for medicines?: No Do you have trouble getting transportation to medical appointments?: No Do you have trouble paying your heating and electricity bill?: No Do you have trouble taking care of your child, family member or friend?: No Do you have trouble with day-to-day activities such as bathing, preparing meals, shopping, managing finances, etc.?: No Are you currently unemployed and looking for a job?: No Are you interested in more education?: No Please select the resources that you would like help with: None Currently or been in a relationship where the following occur: No concerns reported THRIVE Score: 0 AUDIT C Alcohol Use Questionnaire (AUDIT-C) 1. How often do you have a drink containing alcohol?: Never 3. How often do you have six or more drinks on one occasion?: Never Total Score: 0 Score Reviewed/Action Taken: Yes BHARGAV-7 AMB Questionnaire BHARGAV-7 Date BHARGAV - 7 assessed: 12/26/24 Feeling nervous, anxious, or on edge: 0 = Not at all Not being able to stop or control worryin = Not at all Worrying too much about different things: 0 = Not at all Trouble relaxin = Not at all Being so restless that it is hard to sit still: 0 = Not at all Becoming easily annoyed or irritable: 0 = Not at all Feeling afraid as if something awful might happen: 0 = Not at all Total BHARGAV-7 score (0-4 normal; 5-9 mild; 10-14 moderate; 15-21 severe): 0 Source: Developed by Drs. Frank Tubbs, Erica Alves, Ritesh Goncalves and colleagues, with an educational amy from [employer]. BHARGAV-7 Assessment Billing BHARGAV-7 Assessment Tool: BHARGAV-7 Assessment 90567 Review of Systems Const Details: Denies chills, Denies fatigue, Denies fever(s), Denies headache(s) and Denies weakness HEENT Denies change in vision, Denies dizziness, Denies headache(s), Denies hearing loss, Denies nasal congestion, Denies sinus pain, Denies sinus pressure and Denies sore throat Card Denies chest pain, Denies lightheadedness, Denies dyspnea and Denies other (palpitations) Resp Denies cough, Denies dyspnea and Denies wheezing GI Denies abdominal pain, Denies melena, Denies hematochezia, Denies change in bowel habits, Denies dyspepsia and Denies nausea Denies hematuria and Denies dysuria Musc Denies abnormal gait, Denies myalgias, Denies arthralgias, Denies numbness and Denies tingling Skin/Breast Denies rash, Denies unusual bruising and Denies wounds Neuro Denies abnormal gait, Denies dizziness, Denies headache(s), Denies memory loss, Denies numbness, Denies Sensory deficit (Neuro), Denies tingling and Denies weakness Psych Denies anxiety, Denies depression and Denies memory loss Endo Denies cold intolerance, Denies fatigue, Denies heat intolerance, Denies polydipsia and Denies polyuria Issac/Lymph Denies easy bleeding and Denies easy bruising Aller/Immun Denies wheezing Physical exam (Primary Care) Vital Signs: Last Vital Signs Temp 97.3 F 12/26/24 10:16 Pulse 62 12/26/24 10:16 Resp 16 12/26/24 10:16 BP 105/64 12/26/24 10:16 Pulse Ox 100 12/26/24 10:16 Oxygen Delivery Method Room Air 12/26/24 10:16 BMI result Body Mass Index 19.8 Tobacco/Smoking Status: Tobacco use Status Tobacco use date assessed 12/26/24 12/26/24 10:21 Patient Tobacco Use Status Never used Tobacco 12/26/24 10:09 e-Cigarette/Vaping Use Never Used 12/26/24 10:09 PHQ-9: PHQ-9 Score PHQ-9: Total score 1 12/26/24 10:21 Depression Screening Interpretation: Negative Thrive Assessment: Date of Thrive Assessment Date Thrive assessed 12/26/24 12/26/24 10:09 Currently or been in a relationship where the following occur: No concerns reported Const Other: General: no acute distress, well developed, alert and awake Nutritional Appearance: well nourished Orientation/consciousness: patient oriented x3 HENMT Head: Yes normocephalic and Yes atraumatic Ears: hearing grossly normal bilaterally and TM's normal bilaterally General nose exam: Normal external nose present and Normal nares present Mouth: Normal oral and palatal mucosa present and moist mucous membranes Teeth and gingiva: dentition normal Throat: Yes oropharynx normal Eyes Pupils: Equal, round and reactive pupils present and Pupil accommodation reflex normal EOM: EOMs intact bilaterally Neck Neck: Yes normal visual inspection, Yes no lymphadenopathy and Yes trachea midline Thyroid: Thyroid normal Carotids: no bruits Lymphatic: no lymphadenopathy noted Chest Chest palpation & inspection: normal inspection of the chest Resp Effort & Inspection: normal respiratory effort Auscultation: clear to auscultation bilaterally Cardio Rate: regular rate Rhythm: regular rhythm Heart sounds: S1 normal heart sound present, S2 normal heart sound present, no gallops, no murmurs and no rubs Bruits: no abdominal aortic bruits and no carotid bruits GI Palpation (GI): No Abdominal aortic bruit present, Soft to palpation, nontender, No hepatosplenomegaly present and No Rebound tenderness present Auscultation: normal bowel sounds General: Yes no CVA tenderness Back/Spine/Pelvis Back: no CVA tenderness Cervical Spine: cervical ROM normal and No Cervical spine tenderness Thoracic/Lumbar Spine: thoraco-lumbar ROM normal, No pain with thoraco-lumbar ROM, No thoracic spinal tenderness and No lumbar spinal tenderness Skin General: warm and dry. Normal skin color. Normal skin turgor Lesions: no lesions Rashes: no rashes Trauma: no lacerations or abrasions Wounds: no wounds Nails: normal Neuro General: patient oriented x3, gait normal and CN's II-XI intact bilaterally Cranial nerves: Yes Equal, round and reactive pupils present Cognition (Neuro): normal cognition Gait exam (Neuro): Normal gait present Motor exam (neuro): 5/5 motor strength present throughout Sensory Exam: No Sensory deficit (Neuro) Deep tendon reflexes (DTR's): Right patellar reflex intensity grade: 2+ and Left patellar reflex intensity grade: 2+ Extrem General: Yes normal to inspection, No edema and No calf tenderness Psych Appearance: grossly normal Affect: normal affect Attitude: cooperative Thought process: Normal thought process present Coding Level of Care Code Est Pt Prev Care 18-39y(68912) Diagnoses Physical exam, annual Z00.00 Elevated bilirubin R17 Vitamin D deficiency E55.9 Additional Codes BHARGAV-7 Assessment Billing - BHARGAV-7 Assessment Tool: BHARGAV-7 Assessment 39049 ([id number]) PHQ-9 - 19519 - PHQ-9 Billing: Yes ([id number]) Assessment & Plan Assessment & Plan (1) Physical exam, annual: Code(s): Z00.00 - Encounter for general adult medical examination without abnormal findings Category: Medical Plan: Normal physical exam of a 34-year-old female. No significant functional limitation noted. Continue current treatment regimen. Healthy diet and routine exercise encouraged. Verbalized understanding and agreed with the plan. (2) Elevated bilirubin: Code(s): R17 - Unspecified jaundice Category: Medical Plan: Recent bilirubin level is elevated, 1.9. Previous bilirubin level was 1.6. Normal liver function. No jaundice. 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 Follow-up with signs and symptoms or concerns. Verbalized understanding and agreed with the plan. (3) Vitamin D deficiency: Code(s): E55.9 - Vitamin D deficiency, unspecified Category: Medical Plan: Recent vitamin-D level was significantly low, 18.6. Vitamin D3 1250 units was ordered; she has been taking the medication as prescribed. Continue current treatment regimen. Repeat vitamin-D blood work in 1 month and follow-up for telehealth visit for lab review. Return sooner with symptoms or concerns. Verbalized understanding and agreed with treatment plan. Orders: Orders Vitamin D 25-OH Total 1 Month E55.9 - Vitamin D deficiency, unspecified Medications: Refilled cholecalciferol (vitamin D3) 1,250 mcg PO QWEEK 4 weeks 4 tabs 0RF
[2024-12-26 10:16] VITALS: BP 105/64; PULSE 62; RESP 16; TEMP 36.3; O2SAT 100; BMI 19.8
--- OUTSIDE RECORDS SUMMARY | 2024-12-26 11:16 | XMS_ITS | Clinical Summary ---
Author Organization [address] Address [address] [place] [address] Phone Care Team Providers Care Earthmoving Labourer Name Role Phone Physician, Pcp Unknown Primary Care Provider Mary vailable Encounters Date Type Department Care Team Description 11/04/[address] [facility] - Main Lab [address] [facility] [place] [address] Kwame Mercer MD Encounter for [...] Td or Tdap) 04/04/2023 04/04/2013 COVID-19 Vaccine (2023-2 5 season) 2024 Depression Screening 11/04/2024 HIV Screening 11/04/2024 Hepatitis C Screening 11/04/2024 Social Influencers of Health Screening 11/04/2024 Influenza Vaccine (Season Ended) 2025 07/03/20 16 Cervical Cancer Screening: P ap Smear 11/03/2027 [...] age to complete this topic Meningococcal B Vaccine Aged Out No l onger eligible based on patient's age to complete [...] LAB MICROBIOLOGY METHOD 11/04/2024 1:22 PM EST [facility] Chlamydia, RNA Probe Negative Negative LAB MICROBIOLOGY METHOD 11/04/2024 1:22 PM EST [facility] Brushing/Spatula Cervix uteri structure / Unknown 11/03/2024 11/04/2024 8:27 AM EST us Kwame Mercer MD LAB CYTOLOGY ORDERABLES Final Result [facility] [address] [place] [address], * Pap smear (11/03/2024 12:00 AM EST) Interpretation Negative for intraepithelial lesion or malignancy 11/07/2024 3:50 PM EST [facility] General Categorization Negative 11/07/2024 3:50 PM EST [facility] Other Findings Reactive cellular changes associated with inflammation 11/07/2024 3:50 PM EST [facility] Additional Information History of LSIL 11/07/2024 3:50 PM [facility] Specimen Adequacy Satisfactory for evaluation, endocervical/knutson sformation zone component present 11/07/2024 3:50 PM [facility] Pap Methodology Liquid Based Pap Test 11/07/2024 3:50 PM [facility] Disclaimer The Pap test is a screening test which carries an inherent false negative rate. These test results should be correlated with the patient's clinical findings and history. This Pap test was processed using an automated screening system. Technical cytopathology services provided by [facility], at [address] [place] [address] (CLIA # [id number]/Josefina Seo MD, Hoop Rolls Operator.) 11/07/2024 3:50 PM [facility] Console Pap Interpretation Reported 11/07/2024 3:50 PM [facility] Brushing/Spatula Cervix uteri structure / Unknown 11/03/2024 11/04/2024 8:27 AM EST us Kwame Mercer MD LAB CYTOLOGY ORDERABLES Final Result [facility] [address] [place] [address], from [place] [address] [place] [address] [employer] Care Teams Earthmoving Labourer Relationship Specialty Start Date End Date Physician, Pcp Unknown PCP - General 11/04/24
--- OUTSIDE RECORDS SUMMARY | 2024-12-26 11:16 | XMS_ITS | Encounter Summary ---
Author Organization [facility] Address [address] [place] [id number] Care Team Providers Care Beer Brewer Name Role Phone Physician, Pcp Unknown Primary Care Provider Mary vailable Encounter Details Date Type Department Care Team (Latest Contact Info) Description 11/04/[address] [facility] - Main Lab [address] [facility] [place] [address] Kwame Mercer MD [address] [facility] [address] [place] [address] Encounter for gynecological examination (general) [...] MICROBIOLOGY METHOD 11/04/2024 1:22 PM EST [facility] Chlamydia, RNA Probe Negative Negative LAB MICROBIOLOGY METHOD 11/04/2024 1:22 PM EST [facility] Brushing/Spatula Cervix uteri structure / Unknown 11/03/2024 11/04/2024 8:27 AM EST Kwame Mercer MD LAB CYTOLOGY ORDERABLES Final Result [facility] [address] [place] [address], * Pap smear (11/03/2024 12:00 AM EST) Interpretation Negative for intraepithelial lesion or malignancy 11/07/2024 3:50 PM [facility] General Categorization Negative 11/07/2024 3:50 PM [facility] Other Findings Reactive cellular changes associated with inflammation 11/07/2024 3:50 PM [facility] Additional Information History of LSIL 11/07/2024 3:50 PM [facility] Specimen Adequacy Satisfactory for evaluation, endocervical/knutson sformation zone component present 11/07/2024 3:50 PM [facility] Pap Methodology Liquid Based Pap Test 11/07/2024 3:50 PM [facility] Disclaimer The Pap test is a screening test which carries an inherent false negative rate. These test results should be correlated with the patient's clinical findings and history. This Pap test was processed using an automated screening system. Technical cytopathology services provided by [facility], at [address] [place] [id number] (CLIA # [id number]/Josefina Seo MD, Glue Reel Operator.) 11/07/2024 3:50 PM [facility] Console Pap Interpretation Reported 11/07/2024 3:50 PM [facility] Brushing/Spatula Cervix uteri structure / Unknown 11/03/2024 11/04/2024 8:27 AM EST us Kwame Mercer MD LAB CYTOLOGY ORDERABLES Final Result [facility] [address] [place] [address], documented in this encounter Visit Diagnoses Diagnosis Encounter for gynecological examination (general) (routine) without abnormal findings documented in this encounter Care Teams Beer Brewer Relationship Specialty Start Date End Date Physician, Pcp Unknown PCP - General 11/04/24 documented as of this encounter
== END 2024-12-26 10:45 | disposition home or self-care (01) ==
LOC: HO.HMCFM 10:00
PROVIDERS: PCP Nurse Practitioner Family; Visit Provider Nurse Practitioner Family
DX: Z00.00 Encounter for general adult medical examination without abnormal findings (principal); R17 Unspecified jaundice; E55.9 Vitamin D deficiency, unspecified

== ENCOUNTER → 2024-12-26 10:00 | Outpatient (BNVA) | payer OTHER, SELFPAY | PROVIDERS: PCP Nurse Practitioner Family; Visit Provider Nurse Practitioner Family | DX: Z00.00 Encounter for general adult medical examination without abnormal findings (principal); R17 Unspecified jaundice; E55.9 Vitamin D deficiency, unspecified | CPT/HCPCS: 96127 ==

== ENCOUNTER 2025-01-19 15:18 | Outpatient (REF) | payer OTHER, SELFPAY ==
--- OUTSIDE RECORDS SUMMARY | 2025-01-19 15:52 | XMS_ITS | Encounter Summary ---
Author Organization [facility] Address [address] [place] [phone] Care Team Providers Care Interstate Bus Dispatcher Name Role Phone Physician, Pcp Unknown Primary Care Provider Mary vailable Encounter Details Date Type Department Care Team (Latest Contact Info) Description 11/04/2024 Lab Requisition [facility] - Main Lab [address] [facility] [place] [address] Kwame Mercer MD 299 [facility] [address] [place] [address] Encounter for gynecological examination (general) [...] LAB MICROBIOLOGY METHOD 11/04/2024 1:22 PM EST [facility] Chlamydia, RNA Probe Negative Negative LAB MICROBIOLOGY METHOD 11/04/2024 1:22 PM EST [facility] Brushing/Spatula Cervix uteri structure / Unknown 11/03/2024 11/04/2024 8:27 AM EST Kwame Mercer MD LAB CYTOLOGY ORDERABLES Final Result [facility] [address] [place] [address], * Pap smear (11/03/2024 12:00 AM EST) Interpretation Negative for intraepithelial lesion or malignancy 11/07/2024 3:50 PM [facility] General Categorization Negative 11/07/2024 3:50 PM [facility] Other Findings Reactive cellular changes associated with inflammation 11/07/2024 3:50 PM [facility] Additional Information History of LSIL 11/07/2024 3:50 PM [facility] Specimen Adequacy Satisfactory for evaluation, endocervical/knutson sformation zone component present 11/07/2024 3:50 PM [facility] Pap Methodology Liquid Based Pap Test 11/07/2024 3:50 PM [facility] Disclaimer The Pap test is a screening test which carries an inherent false negative rate. These test results should be correlated with the patient's clinical findings and history. This Pap test was processed using an automated screening system. Technical cytopathology services provided by [facility], at [address] [place] [id number] (CLIA # [id number]/Josefina Seo MD, Plant Physiologist.) 11/07/2024 3:50 PM [facility] Console Pap Interpretation Reported 11/07/2024 3:50 PM [facility] Brushing/Spatula Cervix uteri structure / Unknown 11/03/2024 11/04/2024 8:27 AM EST us Kwame Mercer MD LAB CYTOLOGY ORDERABLES Final Result [facility] [address] [place] [address], documented in this encounter Visit Diagnoses Diagnosis Encounter for gynecological examination (general) (routine) without abnormal findings documented in this encounter Care Teams Interstate Bus Dispatcher Relationship Specialty Start Date End Date Physician, Pcp Unknown PCP - General 11/04/24 documented as of this encounter
[2025-01-19 18:27] LABS: Vitamin D 25-OH Total 64.2 ng/mL (>30)
== END 2025-01-19 15:19 | disposition home or self-care (01) ==
LOC: HO.WFDLDS 15:18
PROVIDERS: Visit Provider Nurse Practitioner Family
DX: E55.9 Vitamin D deficiency, unspecified (principal)
CPT/HCPCS: 36415; 82306